=== PATIENT | female | born 1955 | race African-American/Black ===

== ENCOUNTER 2019-05-31 06:55 | Outpatient (CLI) | payer OTHER, SELFPAY ==
[2019-05-31 07:20] LABS: Basophils Absolute Auto 0.1 K/mm3 (0.0-0.1); Basophils Percent Auto 0.7 % (0.2-1.2); Eosinophils Absolute Auto 0.1 K/mm3 (0-0.3); Eosinophils Percent Auto 0.7 % (0-4.4); Hematocrit 42.4 % (37.0-47.0); Hemoglobin 13.5 g/dL (12.0-15.0); Immature Granulocyte Absolute 0.02 K/mm3 (0.00-0.031); Immature Granulocyte Percent A 0.3 % (0-0.5); Lymphocytes Absolute Auto 1.65 K/mm3 (0.9-3.2); Mean Corpuscular HGB Conc 31.8 g/dl (32-36); Mean Corpuscular Hemoglobin 28.4 pg (26-34); Mean Corpuscular Volume 89.3 fl (80-100); Mean Platelet Volume 9.8 fl (7.4-10.4); Monocytes Absolute Auto 0.4 K/mm3 (0.1-0.6); Monocytes Percent Auto 5.9 % (2.6-8.5); Neutrophils Percent Auto 69.4 % (45.5-73.1); Platelet Count Result 262 k/mm3 (150-375); Red Blood Count 4.75 M/mm3 (4.2-5.4); Red Cell Distribution Width 13.2 % (11.5-14.5); White Blood Count 7.2 K/mm3 (4.5-10.0)
[2019-05-31 07:32] LABS: Alanine Aminotransferase 15 U/L (4-35); Albumin Level 4.1 g/dL (3.5-5.1); Alkaline Phosphatase 50 U/L (38-126); Aspartate Amino Transferase 22 U/L (14-36); Bilirubin,Total 0.7 mg/dL (0.2-1.3); Blood Urea Nitrogen 14 mg/dL (7-17); Calcium 9.1 mg/dL (8.4-10.2); Carbon Dioxide 23 mmol/L (22-30); Chloride 104 mmol/L (98-107); Cholesterol 196 mg/dL (0-200); Creatine Kinase 67 U/L (30-135); Estimated Glomerular Filt Rate 60; Glucose 94 mg/dL (65-105); HDL Direct 62 mg/dL; Hemoglobin A1C 5.8 % (<5.7); Potassium 3.8 mmol/L (3.4-5.0); Sodium 140 mmol/L (137-145); Triglycerides 88 mg/dL (<150)
[2019-05-31 07:33] LABS: Creatinine Urine 262.2 mg/dL
[2019-05-31 07:37] LABS: MALB Creatinine Ratio 8.3 mg/g (0-30); Microalbumin Urine Random 21.8 mg/L (0-16.7)
[2019-05-31 07:42] LABS: LDL Cholesterol Direct 104 mg/dL
== END 2019-05-31 06:56 | disposition home or self-care (01) ==
PROVIDERS: PCP Internal Medicine; Visit Provider Internal Medicine
DX: E78.5 Hyperlipidemia, unspecified (principal); I10 Essential (primary) hypertension
CPT/HCPCS: 36415; 80053; 80061; 82043; 82550; 83036; 84443; 85025

== ENCOUNTER 2020-01-31 11:26 | Outpatient (CLI) | payer OTHER, SELFPAY ==
[2020-01-31 11:59] LABS: Basophils Absolute Auto 0.1 K/mm3 (0.0-0.1); Basophils Percent Auto 0.8 % (0.2-1.2); Eosinophils Percent Auto 0.6 % (0-4.4); Hematocrit 41.3 % (37.0-47.0); Hemoglobin 13.4 g/dL (12.0-15.0); Immature Granulocyte Absolute 0.01 K/mm3 (0.00-0.031); Immature Granulocyte Percent A 0.2 % (0-0.5); Lymphocytes Absolute Auto 2.48 K/mm3 (0.9-3.2); Lymphocytes Percent Auto 37.8 % (18.3-44.2); Mean Corpuscular HGB Conc 32.4 g/dl (32-36); Mean Corpuscular Hemoglobin 28.9 pg (26-34); Mean Platelet Volume 10.2 fl (7.4-10.4); Monocytes Absolute Auto 0.4 K/mm3 (0.1-0.6); Monocytes Percent Auto 6.4 % (2.6-8.5); Neutrophils Absolute Auto 3.6 K/mm3 (1.3-6.7); Neutrophils Percent Auto 54.2 % (45.5-73.1); Platelet Count Result 278 k/mm3 (150-375); Red Blood Count 4.64 M/mm3 (4.2-5.4); Red Cell Distribution Width 13.2 % (11.5-14.5); White Blood Count 6.6 K/mm3 (4.5-10.0)
[2020-01-31 12:14] LABS: Alanine Aminotransferase 15 U/L (4-35); Albumin Level 4.1 g/dL (3.5-5.1); Alkaline Phosphatase 61 U/L (38-126); Anion Gap 7 mmol/L (8-16); Aspartate Amino Transferase 25 U/L (14-36); Bilirubin,Total 0.6 mg/dL (0.2-1.3); Blood Urea Nitrogen 14 mg/dL (7-17); Calcium 9.4 mg/dL (8.4-10.2); Carbon Dioxide 28 mmol/L (22-30); Chloride 104 mmol/L (98-107); Estimated Glomerular Filt Rate > 60; Glucose 85 mg/dL (65-105); Hemoglobin A1C 5.6 % (<5.7); Potassium 3.8 mmol/L (3.4-5.0); Sodium 139 mmol/L (137-145)
[2020-01-31 12:29] LABS: Creatinine Urine 136.2 mg/dL
[2020-01-31 12:34] LABS: MALB Creatinine Ratio 7.6 mg/g (0-30); Microalbumin Urine Random 10.4 mg/L (0-16.7)
[2020-01-31 12:45] LABS: Vitamin D 25 Hydroxy 17.3 ng/mL
== END 2020-01-31 11:27 | disposition home or self-care (01) ==
PROVIDERS: PCP Internal Medicine; Visit Provider Internal Medicine
DX: R73.01 Impaired fasting glucose (principal); E55.9 Vitamin D deficiency, unspecified
CPT/HCPCS: 36415; 80053; 82043; 82306; 83036; 85025

== ENCOUNTER 2020-02-19 07:22 | Outpatient (CLI) | payer OTHER, SELFPAY ==
--- NOTE | ~2020-02-19 | MM_ITS ---
EXAMINATION: MM screening [facility] w michael HISTORY: Screening TECHNIQUE: Craniocaudal and mediolateral oblique 3-D tomosynthesis images were obtained and synthetic 2-D images were generated. CAD analysis was submitted and interpreted. COMPARISON: Comparison to multiple prior studies sequentially, with oldest reviewed study dated 09/2011. BREAST PARENCHYMAL COMPOSITION: There are scattered areas of fibroglandular density. FINDINGS: Stable architectural distortion upper outer quadrant of the left breast consistent with pre vious biopsy site. There is no evidence of suspicious mass, calcification, or architectural distortio n to suggest malignancy in either breast. There has been no suspicious interval change. IMPRESSION: 1. No mammographic evidence of malignancy. 2. Recommend routine screening mammography in one year. BI-RADS Category 2: Benign finding(s). Reviewed, dictated and finalized at location A. T LOADER RESIDENTIAL DRIVER
== END 2020-02-19 07:23 | disposition home or self-care (01) ==
PROVIDERS: PCP Internal Medicine; Visit Provider Internal Medicine
DX: Z12.31 Encounter for screening mammogram for malignant neoplasm of breast (principal)
CPT/HCPCS: 77063; 77067

== ENCOUNTER 2020-05-16 10:17 | Outpatient (CLI) | payer OTHER, SELFPAY ==
--- NOTE | ~2020-05-16 | CT_ITS ---
EXAMINATION: CT abdomen pelvis wo con DATE: 05/16/2020 10:43 INDICATION: Right flank pain. Microscopic hematuria. TECHNIQUE: Computed tomography (CT) of the abdomen and pelvis was performed without intravenous contr ast. Automated exposure control and iterative reconstruction technique were employed. The dose-length product was 830.40 mGy-cm. COMPARISON: None. FINDINGS: The visualized portions of the lung bases demonstrate mild atelectasis. There is a 4 mm nod ule at the minor fissure, likely benign. No pleural effusion. The heart size is normal. No pericardia l effusion. There are cysts in the liver measuring up to 1.7 cm. The gallbladder, spleen, pancreas, a nd adrenal glands are normal. There are cysts in the kidneys measuring up to 11 mm on the left. There is no urolithiasis. There are bilateral inguinal hernias containing fat. There are no dilated loops of bowel. The appendix is normal. There is a small sliding hiatal hernia. There are no pathologically enlarged lymph nodes. There is no free intraperitoneal fluid. There is lumbar levocurvature and mode rate thoracolumbar spondylosis. IMPRESSION: 1. No urolithiasis. 2. Bilateral inguinal hernias containing fat. 3. Small sliding hiatal hernia. Reviewed, dictated and finalized at location A. ATOR TECHNICIAN
[2020-05-16 12:16] LABS: Add Urine Microscopic? YES; Appearance Urine Clear (Clear); Bilirubin Urine Negative (Negative); Blood Urine 1+ (Negative); Color Urine Yellow (Yellow); Glucose Urine UA Negative (Negative); Ketones Urine Negative (Negative); Leukocyte Esterase Ur Negative LEU/UL (Negative); Mucus Urine Rare /lpf; Nitrate Urine Negative (Negative); Protein Urine Negative (Negative); RBC Urine 0-2 /hpf (0-2); Squamous Epithelial Cell Urine Rare /hpf (Few); Urobilinogen Urine Negative mg/dL (<2.0); WBC Urine 0-3 /hpf
== END 2020-05-16 10:18 | disposition home or self-care (01) ==
PROVIDERS: Family Provider Family Medicine; PCP Internal Medicine; Visit Provider Internal Medicine
DX: R10.9 Unspecified abdominal pain (principal); R31.29 Other microscopic hematuria; K40.20 Bilateral inguinal hernia, without obstruction or gangrene, not specified as recurrent; K44.9 Diaphragmatic hernia without obstruction or gangrene
CPT/HCPCS: 74176; 81001

== ENCOUNTER 2020-05-18 11:26 | Emergency (ER) | payer OTHER, SELFPAY ==
[2020-05-18 11:38] VITALS: BP 167/107; PULSE 90; RESP 20; TEMP 36; O2SAT 100
[2020-05-18] MEDS: diazePAM (*CRX) 5 MG TABLET PO (13:05)
[2020-05-18] MEDS: KETOROLAC (*BKC) 60 MG/2 ML VIAL IM (13:05)
--- NOTE | 2020-05-18 14:07 | ED.BACK ---
HPI - Back Pain/Injury General Chief Complaint: Back Pain/Injury Stated Complaint: flank pain, kidney cyst Time Seen by Provider: 05/18/20 12:14 History of Present Illness HPI Narrative: Patient is a 64-year-old female who presents to the ER with left back pain. Radiates down the left leg. Has been having issues on the right side several days earlier. Was seen by her PCP and had outpatient urine/blood work performed. She additionally had a outpatient CT scan performed. No issues with the back but an incidental renal cyst on the left side was found and she is being referred to urology. Patient has no urinary symptoms. No nausea or vomiting. No improvement with Tylenol at home. Patient denies lower extremity numbness/weakness and denies any saddle anesthesia or urinary/fecal incontinence/retention. Related Data Allergies Allergy/AdvReac Type Severity Reaction Status Date / Time oxycodone AdvReac Intermediate HAND Verified 05/18/20 11:40 ITCHING Review of Systems Review of Systems: All systems reviewed & are unremarkable except as noted in HPI and below Constitutional: Constitutional: Denies chills, Denies fever(s) and Denies weakness Gastrointestinal: Gastrointestinal: Denies abdominal pain, Denies nausea and Denies vomiting Musculoskeletal: Musculoskeletal: Reports back pain, Denies joint swelling and Reports muscle cramps Neurologic: Denies focal weakness and Denies numbness PMFSH Past Medical History Medical History Hyperlipidemia Hypertension Surgical History Surgical History History of section Status post left breast biopsy Family History Family History Mother Depression Family history of cataracts Hypertension Family history of elevated blood lipids Family history of Alzheimer's disease Family history of heart disease in male family member before age 55 Father Family history of cataracts Cerebrovascular accident Diabetes mellitus Social History Social History Alcohol intake: never Exam Narrative: Exam Narrative: GENERAL: Well-appearing, well-nourished, and in no acute distress. HEAD: Normocephalic, atraumatic. CHEST: Clear to auscultation. No respiratory distress. HEART: Regular rate and rhythm. Normal peripheral pulses. EXTREMITIES: Normal range of motion. No edema. Back: No midline tenderness of the thoracic or lumbar spine. There is paraspinal upper lumbar tenderness on the left side. No visual evidence of trauma. NEURO: Alert and oriented x3. PSYCH: Normal mood and affect. Course Course Emergency Course: Pain markedly improved after intramuscular Toradol and Valium. I reviewed patient's imaging and labs. No need for repeat imaging or lab work either. Discharge home with anti-inflammatories and muscle x-rays. Discussed taking anti-inflammatories with meal to prevent ulcer formation.. Vital Signs Vital signs: Vital Signs Temperature 96.8 F L 05/18/20 11:38 Pulse Rate 90 05/18/20 11:38 Respiratory Rate 20 05/18/20 11:38 Blood Pressure 167/107 H 05/18/20 11:38 Pulse Oximetry 100 05/18/20 11:38 Temperature 96.8 F L 05/18/20 11:38 Pulse Rate 90 05/18/20 11:38 Respiratory Rate 20 05/18/20 11:38 Blood Pressure 167/107 H 05/18/20 11:38 Pulse Oximetry 100 05/18/20 11:38 Discharge Plan Discharge Clinical Impression: Acute lumbar back pain, Sciatica Patient Disposition: Home, Self-Care Condition: Stable Instructions: Sciatica (ED) Additional Instructions: Return to the ER if you have increased pain in your back, you develop lower extremity weakness/numbness/paralysis, you have numbness or tingling in your private parts, or you are unable to control your ability to urinate/stool. Prescriptions: N
== END 2020-05-18 14:28 | disposition home or self-care (01) ==
PROVIDERS: Emergency Provider Emergency Medicine; Family Provider Family Medicine; PCP Internal Medicine
DX: M54.42 Lumbago with sciatica, left side (principal); E78.5 Hyperlipidemia, unspecified; I10 Essential (primary) hypertension
CPT/HCPCS: 96372; 99283; A9270; J1885

== ENCOUNTER 2020-10-10 12:35 | Outpatient (CLI) | payer OTHER, SELFPAY ==
[2020-10-10 12:59] LABS: Basophils Percent Auto 0.4 % (0.2-1.2); Eosinophils Absolute Auto 0.1 K/mm3 (0-0.3); Eosinophils Percent Auto 1.6 % (0-4.4); Hematocrit 43.7 % (37.0-47.0); Hemoglobin 13.5 g/dL (12.0-15.0); Immature Granulocyte Absolute 0.01 K/mm3 (0.00-0.031); Immature Granulocyte Percent A 0.1 % (0-0.5); Lymphocytes Absolute Auto 2.75 K/mm3 (0.9-3.2); Lymphocytes Percent Auto 39.8 % (18.3-44.2); Mean Corpuscular HGB Conc 30.9 g/dl (32-36); Mean Corpuscular Hemoglobin 28.6 pg (26-34); Mean Corpuscular Volume 92.6 fl (80-100); Mean Platelet Volume 10.4 fl (7.4-10.4); Monocytes Absolute Auto 0.5 K/mm3 (0.1-0.6); Monocytes Percent Auto 7.2 % (2.6-8.5); Neutrophils Absolute Auto 3.5 K/mm3 (1.3-6.7); Neutrophils Percent Auto 50.9 % (45.5-73.1); Platelet Count Result 299 k/mm3 (150-375); Red Blood Count 4.72 M/mm3 (4.2-5.4); Red Cell Distribution Width 13.3 % (11.5-14.5); White Blood Count 6.9 K/mm3 (4.5-10.0)
[2020-10-10 13:15] LABS: Hemoglobin A1C 5.8 % (<5.7)
[2020-10-10 13:24] LABS: Alanine Aminotransferase 16 U/L (4-35); Albumin Level 4.4 g/dL (3.5-5.1); Alkaline Phosphatase 44 U/L (38-126); Anion Gap 8 mmol/L (8-16); Aspartate Amino Transferase 27 U/L (14-36); Bilirubin,Total 0.5 mg/dL (0.2-1.3); Blood Urea Nitrogen 18 mg/dL (7-17); Calcium 9.6 mg/dL (8.4-10.2); Carbon Dioxide 27 mmol/L (22-30); Chloride 108 mmol/L (98-107); Estimated Glomerular Filt Rate > 60; Glucose 88 mg/dL (65-105); Potassium 4.4 mmol/L (3.4-5.0); Sodium 143 mmol/L (137-145)
[2020-10-10 13:57] LABS: Creatinine Urine 119.3 mg/dL
[2020-10-10 14:14] LABS: MALB Creatinine Ratio < 5.0 mg/g (0-30); Microalbumin Urine Random < 6.0 mg/L (0-16.7)
[2020-10-10 14:44] LABS: Vitamin D 25 Hydroxy 35.4 ng/mL
== END 2020-10-10 12:36 | disposition home or self-care (01) ==
PROVIDERS: PCP Internal Medicine; Visit Provider Internal Medicine
DX: I10 Essential (primary) hypertension (principal); I51.81 Takotsubo syndrome; I50.22 Chronic systolic (congestive) heart failure; R73.01 Impaired fasting glucose; E55.9 Vitamin D deficiency, unspecified
CPT/HCPCS: 36415; 80053; 82043; 82306; 83036; 84443; 85025

== ENCOUNTER 2021-02-08 06:43 | Outpatient (CLI) | payer OTHER, SELFPAY ==
[2021-02-08 07:16] LABS: Cholesterol 254 mg/dL (0-200); HDL Direct 66 mg/dL; Triglycerides 69 mg/dL (<150)
[2021-02-08 07:27] LABS: LDL Cholesterol Direct 146 mg/dL
[2021-02-08 07:28] LABS: Creatinine Urine 129.4 mg/dL
[2021-02-08 07:37] LABS: MALB Creatinine Ratio < 4.6 mg/g (0-30); Microalbumin Urine Random < 6.0 mg/L (0-16.7)
[2021-02-08 07:40] LABS: Hemoglobin A1C 5.8 % (<5.7)
== END 2021-02-08 06:44 | disposition home or self-care (01) ==
PROVIDERS: PCP Internal Medicine; Visit Provider Internal Medicine
DX: R73.01 Impaired fasting glucose (principal); E78.2 Mixed hyperlipidemia; I10 Essential (primary) hypertension; I51.81 Takotsubo syndrome; I50.22 Chronic systolic (congestive) heart failure; E55.9 Vitamin D deficiency, unspecified
CPT/HCPCS: 36415; 80061; 82043; 83036; 99284

== ENCOUNTER 2021-02-16 06:57 | Outpatient (CLI) | payer OTHER, SELFPAY | END 2021-02-16 06:58 | disposition home or self-care (01) | PROVIDERS: PCP Internal Medicine; Visit Provider Internal Medicine | DX: Z71.85 Encounter for immunization safety counseling (principal) | CPT/HCPCS: 36415; 86787 ==

== ENCOUNTER 2021-03-20 16:13 | Outpatient (CLI) | payer OTHER, SELFPAY ==
--- NOTE | ~2021-03-20 | MM_ITS ---
EXAMINATION: MM screening [facility] BI w michael HISTORY: Screening mammogram TECHNIQUE: Craniocaudal and mediolateral oblique 3-D tomosynthesis images were obtained and synthetic 2-D images were generated. CAD analysis was submitted and interpreted. COMPARISON: No prior mammogram is available for comparison at this institution. BREAST PARENCHYMAL COMPOSITION: The breasts are almost entirely fatty. FINDINGS: Biopsy markers are noted on the left; history of prior benign left breast biopsy. Again not ed scattered bilateral benign calcifications. There is no evidence of suspicious mass, calcification, or architectural distortion to suggest malignancy in either breast. There has been no suspicious int erval change. IMPRESSION: 1. No mammographic evidence of malignancy. 2. Recommend routine screening mammography in one year. BI-RADS Category 2: Benign finding(s). Reviewed, dictated and finalized at location A. E LEADER
== END 2021-03-20 16:14 | disposition home or self-care (01) ==
LOC: ANHIMG 16:14
PROVIDERS: PCP Internal Medicine; Visit Provider Internal Medicine
DX: Z12.31 Encounter for screening mammogram for malignant neoplasm of breast (principal)
CPT/HCPCS: 77063; 77067

== ENCOUNTER 2021-07-28 06:50 | Outpatient (CLI) | payer OTHER, SELFPAY ==
[2021-07-28 07:20] LABS: Basophils Absolute Auto 0.1 K/mm3 (0.0-0.1); Basophils Percent Auto 0.8 % (0.2-1.2); Eosinophils Absolute Auto 0.1 K/mm3 (0-0.3); Eosinophils Percent Auto 1.8 % (0-4.4); Hematocrit 41.2 % (37.0-47.0); Hemoglobin 13.3 g/dL (12.0-15.0); Immature Granulocyte Absolute 0.02 K/mm3 (0.00-0.031); Immature Granulocyte Percent A 0.3 % (0-0.5); Lymphocytes Absolute Auto 2.47 K/mm3 (0.9-3.2); Lymphocytes Percent Auto 33.5 % (18.3-44.2); Mean Corpuscular HGB Conc 32.3 g/dl (32-36); Mean Corpuscular Hemoglobin 29.1 pg (26-34); Mean Corpuscular Volume 90.2 fl (80-100); Mean Platelet Volume 9.6 fl (7.4-10.4); Monocytes Absolute Auto 0.6 K/mm3 (0.1-0.6); Neutrophils Absolute Auto 4.1 K/mm3 (1.3-6.7); Neutrophils Percent Auto 55.6 % (45.5-73.1); Platelet Count Result 295 k/mm3 (150-375); Red Blood Count 4.57 M/mm3 (4.2-5.4); Red Cell Distribution Width 13.7 % (11.5-14.5); White Blood Count 7.4 K/mm3 (4.5-10.0)
[2021-07-28 07:29] LABS: Hemoglobin A1C 5.5 % (<5.7)
[2021-07-28 07:34] LABS: Alanine Aminotransferase 16 U/L (4-35); Albumin Level 4.2 g/dL (3.5-5.1); Alkaline Phosphatase 58 U/L (38-126); Anion Gap 6 mmol/L (8-16); Aspartate Amino Transferase 27 U/L (14-36); Bilirubin,Total 0.4 mg/dL (0.2-1.3); Blood Urea Nitrogen 21 mg/dL (7-17); Calcium 8.9 mg/dL (8.4-10.2); Carbon Dioxide 28 mmol/L (22-30); Chloride 109 mmol/L (98-107); Cholesterol 221 mg/dL (0-200); Estimated Glomerular Filt Rate > 60; Glucose 94 mg/dL (65-110); HDL Direct 58 mg/dL; Potassium 4.1 mmol/L (3.4-5.0); Sodium 143 mmol/L (137-145); Triglycerides 71 mg/dL (<150)
[2021-07-28 07:44] LABS: Creatinine Urine 128.5 mg/dL; LDL Cholesterol Direct 104 mg/dL
[2021-07-28 07:50] LABS: MALB Creatinine Ratio 6.1 mg/g (0-30); Microalbumin Urine Random 7.8 mg/L (0-16.7)
[2021-07-28 08:00] LABS: Vitamin D 25 Hydroxy 41.1 ng/mL
== END 2021-07-28 06:51 | disposition home or self-care (01) ==
PROVIDERS: PCP Internal Medicine; Visit Provider Internal Medicine
DX: E78.2 Mixed hyperlipidemia (principal); E55.9 Vitamin D deficiency, unspecified; R73.01 Impaired fasting glucose; I10 Essential (primary) hypertension
CPT/HCPCS: 36415; 80053; 80061; 82043; 82306; 83036; 84443; 85025

== ENCOUNTER 2022-02-12 07:13 | Outpatient (CLI) | payer OTHER, SELFPAY ==
[2022-02-12 07:36] LABS: Alanine Aminotransferase 17 U/L (6-35); Albumin Level 4.1 g/dL (3.5-5.1); Alkaline Phosphatase 52 U/L (38-126); Anion Gap 7 mmol/L (8-16); Aspartate Amino Transferase 23 U/L (14-36); Bilirubin,Total 0.5 mg/dL (0.2-1.3); Blood Urea Nitrogen 16 mg/dL (7-17); Calcium 8.9 mg/dL (8.4-10.2); Carbon Dioxide 29 mmol/L (22-30); Chloride 107 mmol/L (98-107); Cholesterol 200 mg/dL (0-200); Estimated Glomerular Filt Rate > 60; Glucose 96 mg/dL (65-110); HDL Direct 58 mg/dL; Potassium 4.1 mmol/L (3.4-5.0); Sodium 143 mmol/L (137-145); Triglycerides 81 mg/dL (<150)
[2022-02-12 07:37] LABS: Hemoglobin A1C 5.9 % (<5.7)
[2022-02-12 07:47] LABS: LDL Cholesterol Direct 89 mg/dL
[2022-02-12 08:22] LABS: Vitamin D 25 Hydroxy 31.1 ng/mL
== END 2022-02-12 07:14 | disposition home or self-care (01) ==
PROVIDERS: PCP Internal Medicine; Visit Provider Internal Medicine
DX: R73.01 Impaired fasting glucose (principal); I10 Essential (primary) hypertension; E78.5 Hyperlipidemia, unspecified; E55.9 Vitamin D deficiency, unspecified
CPT/HCPCS: 36415; 80053; 80061; 82306; 83036

== ENCOUNTER 2022-05-08 08:21 | Outpatient (CLI) | payer OTHER, SELFPAY ==
--- NOTE | ~2022-05-08 | MM_ITS ---
EXAMINATION: MM screening [facility] BI w michael HISTORY: Screening mammogram TECHNIQUE: Craniocaudal and mediolateral oblique 3-D tomosynthesis images were obtained and synthetic 2-D images were generated. CAD analysis was submitted and interpreted. COMPARISON: 03/20/2021, 02/19/2020, 02/02/2019 BREAST PARENCHYMAL COMPOSITION: There are scattered areas of fibroglandular density. FINDINGS: Stable changes of excisional biopsy are seen in the upper outer quadrant of the left breast . No suspicious mass, calcification, or architectural distortion are identified in either breast to s uggest malignancy. There has been no suspicious interval change. IMPRESSION: 1. No mammographic evidence of malignancy. 2. Recommend routine screening mammography in one year. BI-RADS Category 2: Benign finding(s). Reviewed, dictated and finalized at location A. RANCE REPRESENTATIVE
== END 2022-05-08 08:22 | disposition home or self-care (01) ==
LOC: ANHIMG 08:24
PROVIDERS: PCP Internal Medicine; Visit Provider Nurse Practitioner
DX: Z12.31 Encounter for screening mammogram for malignant neoplasm of breast (principal)
CPT/HCPCS: 77063; 77067

== ENCOUNTER 2022-08-19 07:39 | Outpatient (CLI) | payer OTHER, SELFPAY ==
[2022-08-19 08:14] LABS: Alanine Aminotransferase 17 U/L (6-35); Albumin Level 4.1 g/dL (3.5-5.1); Alkaline Phosphatase 55 U/L (38-126); Anion Gap 2 mmol/L (8-16); Aspartate Amino Transferase 20 U/L (14-36); Bilirubin,Total 0.6 mg/dL (0.2-1.3); Blood Urea Nitrogen 14 mg/dL (7-17); Calcium 9.1 mg/dL (8.4-10.2); Carbon Dioxide 31 mmol/L (22-30); Chloride 107 mmol/L (98-107); Cholesterol 237 mg/dL (0-200); Estimated Glomerular Filt Rate > 60; Glucose 92 mg/dL (65-110); HDL Direct 64 mg/dL; Potassium 3.9 mmol/L (3.4-5.0); Sodium 140 mmol/L (137-145); Triglycerides 93 mg/dL (<150)
[2022-08-19 08:25] LABS: Hemoglobin A1C 5.8 % (<5.7); LDL Cholesterol Direct 121 mg/dL
== END 2022-08-19 07:40 | disposition home or self-care (01) ==
LOC: ANHLAB 07:40
PROVIDERS: Internal Medicine; PCP Nurse Practitioner; Visit Provider Nurse Practitioner
DX: R73.01 Impaired fasting glucose (principal); E78.5 Hyperlipidemia, unspecified; I10 Essential (primary) hypertension
CPT/HCPCS: 36415; 80053; 80061; 83036

== ENCOUNTER 2023-03-20 07:46 | Outpatient (CLI) | payer OTHER, SELFPAY ==
--- NOTE | ~2023-03-20 | XR_ITS ---
XR lumbar spine 2-3V 03/20/2023 08:13 Indication: Radiculopathy Procedure: 3 views lumbar spine Comparison: No prior studies for comparison. Findings: There is disc narrowing at L4-5 and L5-S1. There is multilevel facet hypertrophy. There is grade 1 spondylolisthesis at L5-S1. There is levoscoliosis. No acute fracture or traumatic malalignme nt. Atherosclerosis is noted. Impression: 1: Moderate-severe lumbar spondylosis with levoscoliosis. Reviewed, dictated and finalized at location L. TIZER Impression: 1: Moderate-severe lumbar spondylosis with levoscoliosis.
[2023-03-20 08:04] LABS: Hematocrit 43.2 % (37.0-47.0); Hemoglobin 13.5 g/dL (12.0-15.0); Mean Corpuscular HGB Conc 31.3 g/dl (32-36); Mean Corpuscular Hemoglobin 28.2 pg (26-34); Mean Corpuscular Volume 90.4 fl (80-100); Mean Platelet Volume 10.2 fl (7.4-10.4); Platelet Count Result 284 k/mm3 (150-375); Red Blood Count 4.78 M/mm3 (4.2-5.4); Red Cell Distribution Width 13.2 % (11.5-14.5); White Blood Count 6.1 K/mm3 (4.5-10.0)
[2023-03-20 08:13] LABS: Appearance Urine Clear (Clear); Bacteria Urine None Seen /hpf; Bilirubin Urine Negative (Negative); Color Urine Yellow (Yellow); Glucose Urine UA Negative (Negative); Ketones Urine Negative (Negative); Leukocyte Esterase Ur Negative LEU/UL (Negative); Nitrate Urine Negative (Negative); Non Pathogenic Casts 0-2; Protein Urine Negative (Negative); Specific Grav Ur 1.018 (1.001-1.035); Squamous Epithelial Cell Urine None seen /hpf (Few); WBC Urine 0-5 /hpf; pH Urine 7.5 (5.0-9.0)
[2023-03-20 08:19] LABS: Alanine Aminotransferase 14 U/L (6-35); Albumin Level 4.1 g/dL (3.5-5.1); Alkaline Phosphatase 60 U/L (38-126); Anion Gap 7 mmol/L (8-16); Aspartate Amino Transferase 21 U/L (14-36); Bilirubin,Total 0.6 mg/dL (0.2-1.3); Blood Urea Nitrogen 9 mg/dL (7-17); Calcium 9.2 mg/dL (8.4-10.2); Carbon Dioxide 29 mmol/L (22-30); Chloride 107 mmol/L (98-107); Cholesterol 225 mg/dL (0-200); Estimated Glomerular Filt Rate > 60; Glucose 93 mg/dL (65-110); HDL Direct 64 mg/dL; Potassium 3.9 mmol/L (3.4-5.0); Sodium 143 mmol/L (137-145); Triglycerides 74 mg/dL (<150)
[2023-03-20 08:22] LABS: Add Urine Microscopic? YES
[2023-03-20 08:32] LABS: LDL Cholesterol Direct 114 mg/dL
[2023-03-20 08:43] LABS: Hemoglobin A1C 5.5 % (<5.7)
== END 2023-03-20 07:47 | disposition home or self-care (01) ==
PROVIDERS: PCP Nurse Practitioner; Visit Provider Nurse Practitioner
DX: M47.26 Other spondylosis with radiculopathy, lumbar region (principal); Z79.899 Other long term (current) drug therapy; E78.5 Hyperlipidemia, unspecified; R73.01 Impaired fasting glucose
CPT/HCPCS: 36415; 72100; 80053; 80061; 81001; 83036; 85027

== ENCOUNTER 2023-04-24 13:00 | Outpatient (RCR) | payer OTHER, SELFPAY ==
--- NOTE | 2023-03-19 15:36 | PTOPEVAL1 ---
Assessment and note entered by Mario Husain Evaluation Information Assessment Status Evaluation Diagnosis lumbar radiculopathy Onset 12/17/22 Subjective Information Pt. reports she developed low back pain about 3 months ago. She noticed developing pain in the area of the right buttock after getting out of bed . She reports that her pain in the right leg and buttock is constant. She states that she has had no recent testing of her back or hips. She reports she is not currently taking any pain medication. She reports that her pain is improved with movement. She reports that her pain will wake her if she lays on the right side too long. She reports that pain is relieved with stretching and moving. She states that she continues to work 4 days a week and is on her feet often. She reports that she completes all IADL's despite her pain, just much slower and painful. She reports that her goal is to decrease her right leg pain. Reported Pain Level Pain Score 6: Self Report Assessment PT Clinical Summary pt. is a 67 year old female who enters the clinic with lumbar radiculopathy. She presents with impaired postural awareness, impaired gait, pain and generalized weakness of the abdominals and l.e . Continued skilled PT is indicated in order to improve these areas to allow for improved comfort and safety with IADL performance. Plan of Care Interventions Electrical Stimulation,Gait Training,Hot Pack/Cold Pack,Manual Therapy,Mechanical Traction,Neuro Re- education,Patient/Caregiver Educati,Therapeutic Activities,Therapeutic Exercise PT Services Indicated Yes Treatment Frequency and 2x/week x 10 visits Duration These treatments will address the objective and functional deficits as defined above. The patient will be advanced safely and appropriately in order for the patient to progress towards his/her prior level of function. Additional exercises will be introduced and as well as a comprehensive home exercise program upon discharge, if needed, ?to ensure carryover of functional gains achieved in the clinic. This treatment plan has been reviewed and agreement upon by the patient.
--- NOTE | 2023-04-03 13:25 | PCPTNOTE ---
Pt cancelled due to having to change work locations today.
--- NOTE | 2023-04-10 12:58 | PCPTNOTE ---
Patient cancelled secondary to work.
--- NOTE | 2023-04-24 14:39 | PTOPDC ---
Assessment and note entered by Mario Husain Discharge Information Assessment Status Discharge Diagnosis lumbar radiculopathy Onset 12/17/22 Subjective Information Pt. reports that she is feeling better. She states that her she is moving better and getting up out of bed is much easier. She reports she can stand longer with less intense pain. Reported Pain Level Pain Score 5: Self Report Assessment PT Clinical Summary Pt. has met majority of the goals established at the initial evaluation. She is encouraged to continue with her HEP and will be discharged from our care at this time. Plan of Care PT Services Indicated Yes
== END 2023-04-24 16:20 | disposition home or self-care (01) ==
LOC: ANHPT 13:00
PROVIDERS: PCP Nurse Practitioner; Visit Provider Nurse Practitioner
DX: M54.16 Radiculopathy, lumbar region (principal)
CPT/HCPCS: 97014; 97110; 97140; 97161; 97530; G0283

== ENCOUNTER 2023-05-27 09:10 | Emergency (ER) | payer OTHER, SELFPAY ==
[2023-05-27] VITALS (8 sets, daily range): BP systolic 163–198; BP diastolic 85–109; PULSE 49–68; RESP 16–18; TEMP 36.6; O2SAT 97–100
--- NOTE | ~2023-05-27 | CT_ITS ---
EXAMINATION: CTA chest PE protocol DATE: 05/27/2023 10:35 INDICATION: Dyspnea. TECHNIQUE: Computed tomography angiography (CTA) of the chest was performed with 100 mL Omnipaque-350 intravenous contrast timed to evaluate the pulmonary arteries. Coronal maximum intensity projection 3D-reconstructions were created by the technologist. Automated exposure control and iterative reconst ruction technique were employed. The dose-length product was 701.20 mGy-cm. COMPARISON: CT abdomen and pelvis 05/16/20 FINDINGS: The lungs demonstrate mild atelectasis. There is air trapping in superior segment left lowe r lobe. No pleural effusion. Cardiomegaly is noted. No pericardial effusion. The central pulmonary ar teries are enlarged, consistent with pulmonary arterial hypertension. There is no pulmonary embolus. There is a small sliding hiatal hernia. There are cysts in the liver measuring up to 18 mm . There is a 10 mm cyst in left kidney. There is severe thoracic spondylosis. IMPRESSION: 1. No pulmonary embolus. Sensitivity is mildly decreased by motion artifact. Reviewed, dictated and finalized at location A. NEL INSTALLER
--- NOTE | ~2023-05-27 | XR_ITS ---
EXAMINATION: XR chest 2V DATE: 05/27/2023 10:46 INDICATION: Shortness of breath. TECHNIQUE: Frontal and lateral views of the chest were obtained. COMPARISON: Chest 2 views 03/11/16, chest CT 05/27/2023 FINDINGS: There is no pneumonia, pleural effusion, or pneumothorax. Cardiomegaly is noted. IMPRESSION: 1. Cardiomegaly. Reviewed, dictated and finalized at location A. AL CREATIVE CHAIRMAN IMPRESSION: 1. Cardiomegaly.
--- NOTE | 2023-05-27 09:33 | ECG_ITS ---
Measurements Intervals [place] Rate: 57 P: 15 CO: 168 QRS: -7 QRSD: 91 T: -60 QT: 406 QTc: 396 Interpretive Statements SINUS BRADYCARDIA LEFT VENTRICULAR HYPERTROPHY AND ST-T CHANGE [VOLTAGE CRITERIA PLUS ST/T ABNORMALITY] NO PREVIOUS ECG AVAILABLE FOR COMPARISON Electronically Signed On 05-27-2023 13:50:55 INSPECTOR RAG SORTING by Briseida Rosenthal M.D.
--- NOTE | 2023-05-27 09:46 | ED.GENADULT ---
HPI - General Adult General Chief complaint: Shortness of Breath/Dyspnea Stated complaint: SOB Time Seen by Provider: 05/27/23 09:31 Source: patient Mode of arrival: ambulatory Limitations: no limitations History of Present Illness HPI narrative: This is a 67-year-old female with PMH of HLD, HTN, takotsubo cardiomyopathy who presents to the ED with chief complaint of dyspnea beginning around 4:00 a.m. this morning. Patient reports that she woke up and started to get ready for work this morning and felt very short of breath. She felt like she had a sit-down shared catch her breath. She also reports feeling very lightheaded, especially when she went from a bent over stands to standing straight up. [place] like she may pass out but she did not have a full syncopal episode. Denies any recent illness. Denies any chest pain or cough. Denies nausea, vomiting, abdominal pain or urinary problems. Related Data Home Medications Medication Instructions Recorded Confirmed cholecalciferol (vitamin D3) 50 50 mcg PO DAILY 10/17/20 02/28/23 mcg (2,000 unit) capsule Allergies Allergy/AdvReac Type Severity Reaction Status Date / Time oxycodone AdvReac Intermediate HAND Verified 05/27/23 09:59 ITCHING Review of Systems Review of Systems: All systems as dictated in [facility] Past Medical History Medical History Hyperlipidemia Hypertension Surgical History Surgical History History of section Status post left breast biopsy Family History Family History Mother Depression Family history of cataracts Hypertension Family history of elevated blood lipids Family history of Alzheimer's disease Family history of heart disease in male family member before age 55 Father Family history of cataracts Cerebrovascular accident Diabetes mellitus Social History Social History Smoking status: Never smoker Second hand tobacco smoke exposure: No Alcohol intake: former Substance use: never Substance use type: does not use Lack of Transportation: No Lack of Food: Never True Current Housing: I Have Housing Concerned About Future Housing: No Difficulty Paying Gas/Electric Bills: No Difficulty Paying for Meds: No Currently Unemployed: No Education: Trade/Vocational Certificate Difficulty w/ Childcare or Family Care: No Exam Narrative: GENERAL: Well-appearing, well-nourished, and in no acute distress. HEAD: Normocephalic, atraumatic. EYES: PERRLA and EOMI. ENT: Nares clear, no rhinorrhea or epistaxis. Mucous membranes moist. Oropharynx without tonsillar hypertrophy exudate or other lesions. NECK: Supple. No adenopathy or masses. CHEST: No respiratory distress. Clear to auscultation. No wheezes rales or rhonchi HEART: Regular rate and rhythm. No murmur heard. Normal peripheral pulses. ABDOMEN: Soft, nontender, nondistended, normal active bowel sounds. MSK: Normal range of motion. No edema. SKIN: Warm, dry, no rash. NEURO: Alert and oriented x3. No focal deficits. PSYCH: Normal mood and affect. Course Course Emergency Course: Re-evaluation 1145: She is feeling much improved. Completely asymptomatic at this point. She passed her walking desaturation test did not drop below 97% on room air. She has normal feelings of lightheadedness. Orthostatics knee did show positive result is systolic dropped from sitting to standing. Consistent with dehydration Vital Signs Vital signs: Vital Signs Temperature 97.9 F 05/27/23 09:24 Pulse Rate 64 05/27/23 09:24 Respiratory Rate 18 05/27/23 09:24 Blood Pressure 167/105 H 05/27/23 09:24 Pulse Oximetry 100 05/27/23 09:24 Oxygen Delivery Room Air 05/27/23 09:24 Temperature 97.9 F
[2023-05-27 09:57] LABS: Basophils Absolute Auto 0.1 K/mm3 (0.0-0.1); Basophils Percent Auto 0.9 % (0.2-1.2); Eosinophils Absolute Auto 0.1 K/mm3 (0-0.3); Eosinophils Percent Auto 1.2 % (0-4.4); Hematocrit 44.9 % (37.0-47.0); Hemoglobin 14.2 g/dL (12.0-15.0); Immature Granulocyte Absolute 0.01 K/mm3 (0.00-0.031); Immature Granulocyte Percent A 0.1 % (0-0.5); Lymphocytes Percent Auto 25.2 % (18.3-44.2); Mean Corpuscular HGB Conc 31.6 g/dl (32-36); Mean Corpuscular Hemoglobin 28.5 pg (26-34); Mean Corpuscular Volume 90.2 fl (80-100); Mean Platelet Volume 10.2 fl (7.4-10.4); Monocytes Absolute Auto 0.4 K/mm3 (0.1-0.6); Monocytes Percent Auto 6.2 % (2.6-8.5); Neutrophils Absolute Auto 4.5 K/mm3 (1.3-6.7); Neutrophils Percent Auto 66.4 % (45.5-73.1); Platelet Count Result 282 k/mm3 (150-375); Red Blood Count 4.98 M/mm3 (4.2-5.4); Red Cell Distribution Width 13.7 % (11.5-14.5); White Blood Count 6.8 K/mm3 (4.5-10.0)
[2023-05-27 10:09] LABS: Alanine Aminotransferase 18 U/L (6-35); Albumin Level 4.5 g/dL (3.5-5.1); Alkaline Phosphatase 65 U/L (38-126); Anion Gap 3 mmol/L (8-16); Aspartate Amino Transferase 23 U/L (14-36); Bilirubin,Total 0.5 mg/dL (0.2-1.3); Blood Urea Nitrogen 17 mg/dL (7-17); Calcium 9.9 mg/dL (8.4-10.2); Carbon Dioxide 31 mmol/L (22-30); Chloride 108 mmol/L (98-107); Estimated Glomerular Filt Rate > 60; Glucose 94 mg/dL (65-110); Potassium 4.3 mmol/L (3.4-5.0); Sodium 142 mmol/L (137-145)
[2023-05-27 10:12] LABS: D Dimer 0.65 ug/mL (<0.48)
[2023-05-27 10:28] LABS: NT Pro B Type Natriuretic Pept 146 pg/mL (19.9-100); Troponin I < 0.012 ng/mL (0.000-0.034)
== END 2023-05-27 12:10 | disposition home or self-care (01) ==
PROVIDERS: Emergency Provider Physician Assistant; PCP Nurse Practitioner
DX: R42 Dizziness and giddiness (principal); I10 Essential (primary) hypertension; E78.5 Hyperlipidemia, unspecified
CPT/HCPCS: 36415; 71046; 71275; 80053; 83880; 84484; 85025; 85380; 93005; 99284; Q9967

== ENCOUNTER 2023-06-19 07:32 | Outpatient (CLI) | payer OTHER, SELFPAY ==
--- NOTE | ~2023-06-19 | MM_ITS ---
EXAMINATION: MM screening [facility] BI w michael HISTORY: Screening TECHNIQUE: Craniocaudal and mediolateral oblique 3-D tomosynthesis images were obtained and synthetic 2-D images were generated. CAD analysis was submitted and interpreted. COMPARISON: Comparison to multiple prior studies sequentially, with oldest reviewed study dated 12/2013. BREAST PARENCHYMAL COMPOSITION: Dense: The breasts are heterogeneously dense, which may obscure small masses FINDINGS: Stable architectural distortion upper outer quadrant of the left breast, consistent with pr evious benign biopsy. There is no evidence of suspicious mass, calcification, or architectural distor tion to suggest malignancy in either breast. There has been no suspicious interval change. IMPRESSION: 1. No mammographic evidence of malignancy. 2. Recommend routine screening mammography in one year. BI-RADS Category 2: Benign finding(s). Reviewed, dictated and finalized at location A. TURE TESTER
== END 2023-06-19 07:33 | disposition home or self-care (01) ==
PROVIDERS: PCP Nurse Practitioner; Visit Provider Nurse Practitioner
DX: Z12.31 Encounter for screening mammogram for malignant neoplasm of breast (principal)
CPT/HCPCS: 77063; 77067

== ENCOUNTER 2023-10-24 09:49 | Outpatient (CLI) | payer OTHER, MEDICARE, SELFPAY ==
[2023-10-24 18:46] LABS: Alanine Aminotransferase 13 U/L (6-35); Alkaline Phosphatase 59 U/L (38-126); Anion Gap 2 mmol/L (4-12); Aspartate Amino Transferase 35 U/L (14-36); Bilirubin,Total 0.7 mg/dL (0.2-1.3); Blood Urea Nitrogen 17 mg/dL (7-17); Calcium 9.3 mg/dL (8.4-10.2); Carbon Dioxide 30 mmol/L (22-30); Chloride 110 mmol/L (98-107); Cholesterol 230 mg/dL (0-200); Estimated Glomerular Filt Rate > 60; Glucose 74 mg/dL (65-110); HDL Direct 62 mg/dL; Potassium 4.1 mmol/L (3.4-5.0); Sodium 142 mmol/L (137-145); Triglycerides 85 mg/dL (<150)
[2023-10-24 18:57] LABS: LDL Cholesterol Direct 130 mg/dL
[2023-10-24 19:10] LABS: Hemoglobin A1C 5.7 % (<5.7)
== END 2023-10-24 09:50 | disposition home or self-care (01) ==
PROVIDERS: PCP Family Medicine; Visit Provider Nurse Practitioner
DX: E78.5 Hyperlipidemia, unspecified (principal); R73.01 Impaired fasting glucose
CPT/HCPCS: 36415; 80053; 80061; 83036

== ENCOUNTER 2024-08-17 07:44 | Outpatient (CLI) | payer MEDICARE, SELFPAY ==
--- NOTE | ~2024-08-17 | MM_ITS ---
EXAMINATION: MM screening [facility] BI w michael HISTORY: Screening mammogram TECHNIQUE: Craniocaudal and mediolateral oblique 3-D tomosynthesis images were obtained and synthetic 2-D images were generated. CAD analysis was submitted and interpreted. COMPARISON: 06/19/2023, 05/08/2022, 03/20/2021 BREAST PARENCHYMAL COMPOSITION:Not Dense. There are scattered areas of fibroglandular density. FINDINGS: Stable small spiculated density in the upper, outer left breast. Stable extensive benign ca lcifications, particularly in the right breast. No suspicious mass, calcification, or architectural d istortion are identified in either breast to suggest malignancy. There has been no suspicious interva l change. IMPRESSION: No mammographic evidence of malignancy. Recommend routine screening mammography in one year. BI-RADS Category 2: Benign finding(s). Reviewed, dictated and finalized at [facility].
--- OUTSIDE RECORDS SUMMARY | 2024-08-17 07:47 | XMS_ITS | Clinical Summary ---
Author Organization [employer] Address [address] 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
--- OUTSIDE RECORDS SUMMARY | 2024-08-17 07:47 | XMS_ITS | Encounter Summary ---
Author Organization [employer] Address 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
== END 2024-08-17 07:45 | disposition home or self-care (01) ==
PROVIDERS: PCP Nurse Practitioner; Visit Provider Nurse Practitioner
DX: Z12.31 Encounter for screening mammogram for malignant neoplasm of breast (principal)
CPT/HCPCS: 77063; 77067

== ENCOUNTER 2024-09-16 03:21 | Day surgery (SDC) | payer MEDICARE, SELFPAY ==
[2024-09-08 09:47] VITALS: BMI 33.3
--- OUTSIDE RECORDS SUMMARY | 2024-09-16 03:23 | XMS_ITS | Clinical Summary ---
Author Organization [employer] Address [address] 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
--- OUTSIDE RECORDS SUMMARY | 2024-09-16 03:23 | XMS_ITS | Encounter Summary ---
Author Organization [employer] Address [address] [place] [address] Care Team Providers Care Brake Rider Name Role Phone Unavailable Primary Care Provider [...] on file Legal Sex Female 3:46 AM TAR HEEL Gender Identity Not on file Sexual Orientation Not on file documented as of this encounter Plan of Treatment Not on file documented as of this encounter Visit Diagnoses Diagnosis Vaginitis and vulvovaginitis, unspecified- Primary documented in this encounter
[2024-09-16 09:25] VITALS: BP 138/90; PULSE 60; RESP 19; TEMP 36.2; O2SAT 99; BMI 31.5
[2024-09-16] MEDS: LACTATED RINGERS 1,000 ML 150 ML IV CONT (09:44)
--- NOTE | 2024-09-16 09:50 | WPDANESEPPF ---
Anes - Initial Pre Proc Eval Procedure: Operation Date: 09/16/24 10:30 Proposed Procedures p Colonoscopy - Liang Agrawal MD Date/Time: 09/16/24 09:50 Surgeon: Liang Agrawal MD Pre Op Diagnosis: hx of colon polyps Patient Data Age: 69 Gender: F Height: 1.7 m Weight: 91.3 kg Last Vital Signs Temp 97.2 F L 09/16/24 09:25 Pulse 60 09/16/24 09:25 Resp 19 09/16/24 09:25 BP 138/90 09/16/24 09:25 Pulse Ox 99 09/16/24 09:25 O2 Del Method Room Air 09/16/24 09:25 Allergies Allergy/AdvReac Type Severity Reaction Status Date / Time oxycodone AdvReac Intermediate HAND Verified 09/16/24 09:31 ITCHING Home Medications ?Medication ?Instructions ?Recorded ?Confirmed ?Type cholecalciferol (vitamin D3) 50 50 mcg PO DAILY 10/17/20 09/16/24 History mcg (2,000 unit) capsule carvedilol 25 mg tablet 25 mg PO Q12H #180 tabs 10/06/23 09/16/24 Rx amlodipine 10 mg tablet See Rx Instructions .Route 04/01/24 09/16/24 Rx .COMPLEX #90 tabs pravastatin 80 mg tablet 80 mg PO QHS #90 tabs 08/04/24 09/16/24 Rx oxybutynin chloride 15 mg 15 mg PO DAILY PRN bladder spasms 09/08/24 09/16/24 History tablet,extended release 24 hr Patient hx anesthesia problems: none Family hx anesthesia problems: none Results Review: All pre-operative results and documents have been reviewed as part of the pre-operative evaluation. COUNT INCLUDES THE [facility] Past Medical History Medical History Hypertension Hyperlipidemia Surgical History Surgical History Status post left breast biopsy History of section Family History Family History (Updated 05/18/24 @ 08:01 by DUNIA Mcintosh) Mother Depression Family history of cataracts Hypertension Family history of elevated blood lipids Family history of Alzheimer's disease Family history of heart disease in male family member before age 55 Father Family history of cataracts Cerebrovascular accident Diabetes mellitus Sibling No problems noted. Social History Social History (Updated 05/18/24 @ 08:01 by Maria Guadalupe Turcios [facility]) Smoking status: Never smoker Second hand tobacco smoke exposure: No Alcohol intake: former Substance use: never Substance use type: does not use Do You Feel Safe in your Home?: Yes Lack of Transportation: No Lack of Food: Never True Current Housing: I Have Housing Concerned About Future Housing: No Difficulty Paying Gas/Electric Bills: No Difficulty Paying for Meds: No Currently Unemployed: No Education: Trade/Vocational Certificate Difficulty w/ Childcare or Family Care: No Living arrangements: alone 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/Education: 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 Informed Consent: The patient's anesthetic plan and its attendant risks and benefits were discussed with the patient/family/POA. Questions were solicited and answers provided to the satisfaction of the patient/family/POA.
--- NOTE | 2024-09-16 10:25 | PM.IMHP ---
H&P: HPI History of Present Illness Date/Time: 09/16/24 10:25 Chief Complaint: Family history of colon cancer Narrative: This patient has family history of colorectal cancer. brother had CRC when he was in his 30s. the patient's last colonoscopy was 5 years ago, reportedly had polyps. Review of Systems Review of Systems: All systems reviewed & are unremarkable except as noted in HPI and below PMFSH Past Medical History Medical History Hypertension Hyperlipidemia Surgical History Surgical History Status post left breast biopsy History of section Family History Family History (Updated 05/18/24 @ 08:01 by DUNIA Mcintosh) Mother Depression Family history of cataracts Hypertension Family history of elevated blood lipids Family history of Alzheimer's disease Family history of heart disease in male family member before age 55 Father Family history of cataracts Cerebrovascular accident Diabetes mellitus Sibling No problems noted. 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/Education: 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 Gender identity (if verbalized by the patient): Female Meds Home Medications and Allergies Home Medications ?Medication ?Instructions ?Recorded ?Confirmed ?Type cholecalciferol (vitamin D3) 50 50 mcg PO DAILY 10/17/20 09/16/24 History mcg (2,000 unit) capsule carvedilol 25 mg tablet 25 mg PO Q12H #180 tabs 10/06/23 09/16/24 Rx amlodipine 10 mg tablet See Rx Instructions .Route 04/01/24 09/16/24 Rx .COMPLEX #90 tabs pravastatin 80 mg tablet 80 mg PO QHS #90 tabs 08/04/24 09/16/24 Rx oxybutynin chloride 15 mg 15 mg PO DAILY PRN bladder spasms 09/08/24 09/16/24 History tablet,extended release 24 hr Allergies Allergy/AdvReac Type Severity Reaction Status Date / Time oxycodone AdvReac Intermediate HAND Verified 09/16/24 09:31 ITCHING Vital Signs Vital Signs - 24 hr 09/16/24 09:25 Temperature 97.2 F L Pulse Rate 60 Respiratory Rate 19 Blood Pressure 138/90 Pulse Oximetry 99 Oxygen Delivery Room Air Exam Const: General: cooperative and healthy appearing Resp: Effort & Inspection: normal respiratory effort and able to speak in complete sentences Auscultation: clear to auscultation bilaterally Cardio: Rate: regular rate Rhythm: regular rhythm GI: Inspection: normal to inspection GI Palp: No No hepatosplenomegaly present Auscultation: normal bowel sounds Rectal Exam: deferred Skin: General skin exam: normal color Psych: Appearance: grossly normal Mental Status: mental status grossly normal Assessment and Plan Assessment and plan (1) History of colon polyps: Code(s): Z86.0100 - Personal history of colon polyps, unspecified Status: Acute Assessment and Plan: The patient is deemed a good candidate for the procedure. Consent signed. Will proceed. (2) Family history of colorectal cancer: Code(s): Z80.0 - Family history of malignant neoplasm of digestive organs Status: Acute
[2024-09-16 10:45] VITALS: BP 112/63; PULSE 69; RESP 18; O2SAT 96
[2024-09-16 10:55] VITALS: BP 113/59; PULSE 62; RESP 29; O2SAT 100
[2024-09-16 11:05] VITALS: BP 136/73; PULSE 62; RESP 21; O2SAT 98
== END 2024-09-16 11:25 | disposition home or self-care (01) ==
PROVIDERS: PCP Nurse Practitioner; Referring Provider Nurse Practitioner; Visit Provider Internal Medicine Gastroenterology
PROC: 0DJD8ZZ Inspection of Lower Intestinal Tract, Via Natural or Artificial Opening Endoscopic (ICD-10-PCS; CPT 45378; principal; 2024-09-16 10:30)
DX: Z12.11 Encounter for screening for malignant neoplasm of colon (principal); Z86.0100 Personal history of colon polyps, unspecified; Z80.0 Family history of malignant neoplasm of digestive organs; E66.9 Obesity, unspecified; Z68.31 Body mass index [BMI] 31.0-31.9, adult
CPT/HCPCS: G0105; J2003; J2704; J7120

== ENCOUNTER 2024-09-20 11:00 | Emergency (ER) | payer MEDICARE, SELFPAY ==
--- NOTE | 2024-09-20 11:10 | ED.SKABFB ---
HPI - Skin/Abscess/Foreign Bdy General Chief complaint: Skin/Abscess/Foreign Body Stated complaint: Skin Issues Time Seen by Provider: 09/20/24 11:15 Source: patient Mode of arrival: ambulatory Limitations: no limitations History of Present Illness HPI narrative: Mary Grace is a 69-year-old female patient presenting to the clinic today with complaints of skin issues. She reports that over the last day or 2 she has developed a rash on her chest, arms, back, and legs. States that the rash is itchy. Nonpainful. Recently had a colonoscopy and thinks that she may have had allergic reaction to the tape. Denies any chest pain, shortness of breath, difficulty swallowing, or difficulty breathing. Related Data Home Medications ?Medication ?Instructions ?Recorded ?Confirmed ?Last Taken ?Type oxybutynin chloride 15 mg 15 mg PO DAILY PRN bladder spasms 09/08/24 09/16/24 09/15/24 History tablet,extended release 24 hr Allergies Allergy/AdvReac Type Severity Reaction Status Date / Time adhesive Allergy Mild Hives Verified 09/20/24 11:18 oxycodone AdvReac Intermediate HAND Verified 09/20/24 11:18 ITCHING Review of Systems Review of Systems: Pertinent positives per HPI. Patient denies any fever, chills, headache, visual changes, dizziness, cough, shortness of breath, chest pain, palpitations, nausea, vomiting, diarrhea, constipation, abdominal pain, or any urinary issues. [facility] Past Medical History Medical History Hypertension Hyperlipidemia Surgical History Surgical History Status post left breast biopsy History of section Family History Family History Mother Depression Family history of cataracts Hypertension Family history of elevated blood lipids Family history of Alzheimer's disease Family history of heart disease in male family member before age 55 Father Family history of cataracts Cerebrovascular accident Diabetes mellitus Sibling No problems noted. 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 There is no relevant family history pertinent to the patient complaint. Exam Narrative: General: Well-developed, well nourished, in no apparent distress Head: Normocephalic, atraumatic Eyes: Pupils equally round and reactive to light bilaterally, EOM intact, sclera and conjunctive clear, no discharge, lids normal Ears: TMs intact and clear, ear canals clear, no drainage, grossly hearing normal. Nose: Nares patent, no discharge, no inflammation, no sinus tenderness. Mouth: Oral pharynx without lesions or masses, good dentition, MMM. Neck: Supple, trachea midline, no enlargement of anterior or posterior cervical nodes, no thyroid masses or goiter palpable. Cardio: Regular rate and rhythm, s1 and s2 normal, no murmur appreciated. Resp: Clear to auscultation bilaterally, no rhonchi, rales, wheezing or rubs Integumentary: [place], warm, and dry, intact without lesion, red raised hive-like itchy rash to arms, legs, back, and torso. Course Course Emergency Course: Portions of this record may have been created with voice recognition software. Level of Care: Express Care Visit Vital Signs Vital signs: Vital Signs Temperature 37.3 C 09/20/24 11:13 Pulse Rate 58 L 09/20/24 11:13 Respiratory Rate 16 09/20/24 11:13 Blood Pressure 140/95 H 09/20/24 11:13 Pulse Oximetry 98 09/20/24 11:13 Oxygen Delivery Room Air 09/20/24 11:13 Temperature 37.3 C 09/20/24 11:13 Pulse Rate 58 L 09/20/24 11:13 Respiratory Rate 16 09/20/24 11:13 Blood Pressure 140/95 H 09/20/24 11:13 Pulse Oximetry 98 09/20/24 11:13 Oxygen Delivery Room Air 09/20/24 11:13 Vital signs reviewed MDM - Skin/Abscess/Foreign Bdy MDM Narrative Medical decision making narrative: At the time of visit patient is resting comfortably on the exam table. Patient appears to be nontoxic. Medications: Dexamethasone 10 mg IM given in the clinic today Plan: Patient has hives. Denies any difficulty swallowing, difficulty breathing, shortness breath, or chest pain. Prescription for 10 day taper dose of prednisone and Pepcid was sent to the pharmacy. Supportive measures were discussed with the patient and they voiced understanding discharge instructions and agrees to treatment plan. Return precautions reviewed Differential Diagnosis Differential diagnosis: Likely abscess of skin or subcutaneous tissue, viral exanthem, dermatophytosis, urticaria, herpes zoster, allergic reaction to drug, cellulitis, eczema, insect bites, impetigo and contact dermatitis Discharge Plan Discharge Clinical Impression: Urticaria Patient Disposition: Home Condition: Stable Instructions: Antibiotic Form, Urticaria (ED) Additional Instructions: Dexamethasone 10 mg IM given in the clinic today Take prednisone as directed-start on September 21, 2024 Take Pepcid as prescribed-this is a histamine audie Avoid hot showers Avoid scratching as this can cause a secondary infection May take benadryl 25-50mg every 6 hours as needed for itching. Follow up with your PCP in 3-5 days if symptoms persist or sooner if they worsen Go to the Emergency Room if symptoms worsen- fever, rash spreading with treatment, shortness of breath, tongue swelling, drooling, or chest pain Patient Language: Lithuanian Prescriptions: New prednisone 10 mg tablet 10 mg PO DAILY Qty: 30 0RF Rx Instructions: 60mg po daily on day 1, 40mg po daily on days 2-4, 30mg po daily on days 5-6, 20mg po daily on days 7-8, 10mg po daily on days 9-10 famotidine [Pepcid] 40 mg tablet 40 mg PO DAILY 10 Days Qty: 10 0RF No Action carvedilol 25 mg tablet 25 mg PO Q12H Qty: 180 3RF Rx Instructions: must administer with a meal/food oxybutynin chloride 15 mg tablet extended release 24hr 15 mg PO DAILY PRN (Reason: bladder spasms) amlodipine 10 mg tablet See Rx Instructions .ROUTE .COMPLEX Qty: 90 1RF Dose Instruction: TAKE 1 TABLET BY MOUTH EVERY DAY Rx Instructions: TAKE 1 TABLET BY MOUTH EVERY DAY pravastatin 80 mg tablet 80 mg PO QHS Qty: 90 3RF Follow-up/Referrals: Luciano Mcknight APRN [Primary Care Provider] - Time of Disposition: 11:19 Quality NIHSS Nursing Documentation ED NIHSS nursing documentation: reviewed/agree
[2024-09-20 11:13] VITALS: BP 140/95; PULSE 58; RESP 16; TEMP 37.3; O2SAT 98
[2024-09-20] MEDS: dexAMETHasone SOD PHOS INJ 10 MG/ML 1 ML VIAL IM (11:24)
== END 2024-09-20 11:53 | disposition home or self-care (01) ==
PROVIDERS: Emergency Provider Nurse Practitioner Family; PCP Nurse Practitioner
DX: L50.9 Urticaria, unspecified (principal); I10 Essential (primary) hypertension; E78.5 Hyperlipidemia, unspecified
CPT/HCPCS: 96372; 99213; G0463; J1100

== ENCOUNTER 2024-09-20 12:16 | Outpatient (CLI) | payer MEDICARE, SELFPAY ==
--- OUTSIDE RECORDS SUMMARY | 2024-09-20 12:21 | XMS_ITS | Clinical Summary ---
Author Organization [employer] Address [address] 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
--- OUTSIDE RECORDS SUMMARY | 2024-09-20 12:21 | XMS_ITS | Encounter Summary ---
Author Organization [employer] Address 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
[2024-09-20 13:14] LABS: Alanine Aminotransferase 18 U/L (6-35); Alkaline Phosphatase 59 U/L (38-126); Anion Gap 3 mmol/L (4-12); Aspartate Amino Transferase 28 U/L (14-36); Bilirubin,Total 0.7 mg/dL (0.2-1.3); Blood Urea Nitrogen 10 mg/dL (7-17); Calcium 9.4 mg/dL (8.4-10.2); Carbon Dioxide 27 mmol/L (22-30); Chloride 111 mmol/L (98-107); Cholesterol 234 mg/dL (0-200); Estimated Glomerular Filt Rate > 60; Glucose 92 mg/dL (65-110); HDL Direct 73 mg/dL; Potassium 3.8 mmol/L (3.4-5.0); Sodium 141 mmol/L (137-145); Triglycerides 86 mg/dL (<150)
[2024-09-20 13:19] LABS: Hemoglobin A1C 5.6 % (<5.7)
[2024-09-20 13:25] LABS: LDL Cholesterol Direct 110 mg/dL
== END 2024-09-20 12:17 | disposition home or self-care (01) ==
PROVIDERS: PCP Nurse Practitioner; Visit Provider Nurse Practitioner
DX: E78.5 Hyperlipidemia, unspecified (principal); R73.01 Impaired fasting glucose
CPT/HCPCS: 36415; 80053; 80061; 83036

== ENCOUNTER 2024-10-13 09:25 | Outpatient (CLI) | payer MEDICARE, SELFPAY ==
[2024-10-14 15:08] LABS: Almond (F20) IgE <0.10 kU/L; Alternaria alternata IgE <0.10 kU/L; Alternaria alternata IgE Class 0; Aspergillus fumigatus IgE <0.10 kU/L; Bermuda Grass (G2) IgE <0.10 kU/L; Bermuda Grass (G2) IgE Class 0; Brazil Nut (f18) <0.10 kU/L; Brazil Nut (f18) Class 0; Cashew Nut (F202) IgE <0.10 kU/L; Cashew Nut (F202) IgE Class 0; Cat Dander IgE <0.10 kU/L; Cat Dander IgE Class 0; Cladosporium herbarum IgE <0.10 kU/L; Cladosporium herbarum IgE Clas 0; Cockroach IgE <0.10 kU/L; Cockroach IgE Clas 0; Codfish (F3) IgE <0.10 kU/L; Codfish (F3) IgE Class 0; Common Ragweed IgE Class 0; Cottonwood IgE <0.10 kU/L; Cow's Milk (F2) IgE <0.10 kU/L; Cow's Milk (F2) IgE Class 0; Dermatophagoides Farinae Class 0; Dermatophagoides Pterony Class 0; Dermatophagoides Pteronyssinus <0.10 kU/L; Dog Dander IgE <0.10 kU/L; Egg White (F1) IgE <0.10 kU/L; Egg White (F1) IgE Class 0; Elm (T8) IgE <0.10 kU/L; Elm (T8) IgE Class 0; Hazelnut (F17) IgE <0.10 kU/L; Hazelnut (F17) IgE Class 0; Hickory/Pecan IgE <0.10 kU/L; Hickory/Pecan IgE Class 0; Immunoglobulin E 21 kU/L (<OR=114); Macadamia Nut (rf345) <0.10 kU/L; Macadamia Nut (rf345) Class 0; Maple Box Elder IgE Class 0; Mountain Cedar IgE <0.10 kU/L; Mountain Cedar IgE Class 0; Mouse Urine Proteins IgE <0.10 kU/L; Mouse Urine Proteins IgE Class 0; Oak IgE <0.10 kU/L; Peanut (F13) IgE <0.10 kU/L; Peanut (F13) IgE Class 0; Peniciliium notatum class 0; Penicillium notatum (M1) IgE <0.10 kU/L; Rough Marsh <0.10 kU/L; Rough Marsh Elder Class 0; Rough Pigweed (W14) IgE <0.10 kU/L; Rough Pigweed (W14) IgE Class 0; Russian Thistle <0.10 kU/L; Salmon (F41) IgE <0.10 kU/L; Salmon (F41) IgE Class 0; Scallop (F338) IgE <0.10 kU/L; Scallop (F338) IgE Class 0; Sesame Seed <0.10 kU/L; Shrimp (F24) IgE <0.10 kU/L; Soybean (F14) IgE <0.10 kU/L; Soybean (F14) IgE Class 0; Sycamore IgE <0.10 kU/L; Sycamore IgE Class 0; Timothy Grass IgE <0.10 kU/L; Timothy Grass IgE Class 0; Tuna (F40) <0.10 kU/L; Tuna (F40) Class 0; Walnut (F256) IgE <0.10 kU/L; Walnut (F256) IgE Class 0; Walnut Tree IgE <0.10 kU/L; Walnut Tree IgE Class 0; Wheat (F4) IgE <0.10 kU/L; Wheat (F4) IgE Class 0; White Ash IgE Class 0; White Mulberry IgE <0.10 kU/L; White Mulberry IgE Class 0
== END 2024-10-13 09:26 | disposition home or self-care (01) ==
LOC: ANHLAB 09:27
PROVIDERS: PCP Nurse Practitioner; Visit Provider Nurse Practitioner
DX: L50.9 Urticaria, unspecified (principal)
CPT/HCPCS: 36415; 82785; 86003